=== PATIENT | male | born 1945 | race Caucasian/White ===

== ENCOUNTER 2020-04-04 07:46 | Day surgery (SDC) | payer MEDICARE, OTHER, SELFPAY ==
[2020-04-01 10:04] VITALS: BMI 36.6
--- NOTE | 2020-04-01 15:33 | HO.ANESPROP2 ---
Documented by User: Verónica Gonzalez 04/03/20 10:46 HPI - Anesthesia Eval Consult details Narrative: 74yo M for colonoscopy: screening Cardiac cleared [facility] Past Medical History Medical History Arthritis Back pain Cancer Cardiomyopathy CHF (congestive heart failure) Diabetes Elevated cholesterol History of blood transfusion HTN (hypertension) Hx of gout Hx of heartburn Sleep apnea Surgical History Surgical History H/O colonoscopy History of bronchoscopy Hx of cardiac cath Hx of cataract extraction Social History Social History Smoking Status: Former smoker Smoked in Last 30 Days: No Smoking Quit Date: age 23 Use of substances other than those prescribed or required for medical reasons: No Advance Directives Information Provided: No Recently lost weight without trying: No Meds Allergies Allergy/AdvReac Type Severity Reaction Status Date / Time sodium pentathol Allergy Unknown Uncoded 04/04/20 08:37 Home Medications Medication Instructions Recorded Confirmed Type allopurinol 1 tab PO DAILY 04/01/20 04/01/20 History aspirin [Aspirin Low Dose] 81 mg PO DAILY 04/01/20 04/01/20 History carvedilol 1 tab PO BID 04/01/20 04/01/20 History eplerenone 1 tab PO DAILY 04/01/20 04/01/20 History furosemide 1 tab PO BID 04/01/20 04/01/20 History glyburide 1.25 mg PO BID 04/01/20 04/01/20 History ibuprofen 1 tab PO TID PRN 04/01/20 04/01/20 History simvastatin 1 tab PO DAILY 04/01/20 04/01/20 History valsartan 1.5 tab PO DAILY 04/01/20 04/01/20 History Exam Exam Date and Time: April 01, 2020 1533 Height,Weight and Vital Signs: Height 6 ft 1 in Weight 126.099 kg Narrative Narrative: EKG (from cardiac visit) 11/2019: SB @ 56, 1st deg AV block, poor R wave progression, LAD, ? old [place] ECHO 11/2019: LVEF 35-45%, mod global hypokinesis of LV contractility, Grade 2 DD with impaired relax and elevated LA pressure, possible increased LA pressure. LA severe Dilated. RV sys function low normal, RA mild dilated. Mild AR, trace MR, trace TR, no pulm htn, no pericardial effusion Assessment and Plan Assessment Anesthesia Assessment: Chart Reviewed Documented by User: Payton Storey 04/04/20 08:54 PMFSH Past Medical History Medical History Arthritis Back pain Cancer Cardiomyopathy CHF (congestive heart failure) Diabetes Elevated cholesterol History of blood transfusion HTN (hypertension) Hx of gout Hx of heartburn Sleep apnea Surgical History Surgical History H/O colonoscopy History of bronchoscopy Hx of cardiac cath Hx of cataract extraction Social History Social History Smoking Status: Former smoker Smoked in Last 30 Days: No Smoking Quit Date: age 23 Use of substances other than those prescribed or required for medical reasons: No Advance Directives Information Provided: No Recently lost weight without trying: No Meds Allergies Allergy/AdvReac Type Severity Reaction Status Date / Time sodium pentathol Allergy Unknown Uncoded 04/04/20 08:37 Home Medications Medication Instructions Recorded Confirmed Type allopurinol 1 tab PO DAILY 04/01/20 04/01/20 History aspirin [Aspirin Low Dose] 81 mg PO DAILY 04/01/20 04/01/20 History carvedilol 1 tab PO BID 04/01/20 04/01/20 History eplerenone 1 tab PO DAILY 04/01/20 04/01/20 History furosemide 1 tab PO BID 04/01/20 04/01/20 History glyburide 1.25 mg PO BID 04/01/20 04/01/20 History ibuprofen 1 tab PO TID PRN 04/01/20 04/01/20 History simvastatin 1 tab PO DAILY 04/01/20 04/01/20 History valsartan 1.5 tab PO DAILY 04/01/20 04/01/20 History Exam Airway Mallampati Class: II TM Dist: >3cm Denture: Upper Assessment and Plan Assessment Anesthesia Assessment: Anesthesia Plan Discussed and Chart Reviewed Final Anesthetic Review NPO: Yes ASA Class: III Final Preanesthetic Review: No Changes in Pt Med Stat, Meds/Allgs Chart Reviewed, Consent Obtained/Reviewed and Anes Risks/Benef Reviewed Patient Risk: Intermediate Procedure Risk: Low Assessment/Block/Sedation in SS: Assess/Block/Sedation-SS Anesthetic Plan Anesthetic Plan: MAC: Disposition: Standard PACU
[2020-04-04 08:41] VITALS: BP 128/65; PULSE 60; RESP 16; TEMP 36.1; O2SAT 96
--- NOTE | 2020-04-04 08:54 | P.HPSUR_ITS ---
Pre-Procedural Eval Section B Chief Complaint: Screning, Intermediate Aspirin Use Details of Present Illness: screening Relevant Family History (Specify if Yes): No Relevant Social History: None Present Medications: see Short Stay Collaborative assessment Medical History: Significant History (see H&P no changes) History of Previous Operations: No relevant previous surgery Allergies: Allergies Allergy/AdvReac Type Severity Reaction Status Date / Time sodium pentathol Allergy Unknown Uncoded 04/04/20 08:37 Review of Systems Sugical H&P ROS: Negative: Constitution, Cardiovascular, Respiratory, Neurological, Psychiatric, Hem-Onc, Allergic/Immunologic, Gastrointestinal, Genitourinary, Musculoskeletal, Integumentary, Endocrine and Eyes/Ears/Nose/Throat Exam Surgical H&P Exam: Normal: HEENT, Normal: Heart, Normal: Lungs, Normal: Extremities, Normal: Abdomen, Normal: Skin and Normal: Neurological Plan Diagnosis/Plan: Unchanged Patient has been examined and remains a candidate for the planned procedure
[2020-04-04 08:57] LABS: Glucose, Whole Blood 176 mg/dL (60-115)
[2020-04-04 09:27] VITALS: BP 86/47; PULSE 65; RESP 16; TEMP 36.3; O2SAT 98
--- NOTE | 2020-04-04 09:29 | PM.OP ---
Brief Operative Note Date of procedure: 04/04/20 Pre-op diagnosis: screening Post-op diagnosis: other (colon polyp) Procedure: colonoscopy Surgeon: Romulo Rangel Anesthesia: MAC Estimated blood loss (mL): 1 Pathology: other (polyp 60 cm) Condition: stable Disposition: PACU
[2020-04-04 09:30] VITALS: BP 91/51; PULSE 64
--- NOTE | 2020-04-04 09:38 | OP_ITS ---
SURGEON: Romulo Rangel MD INDICATIONS: Colon cancer screening and prior history of adenomatous colon polyps. PREOPERATIVE DIAGNOSIS: POSTOPERATIVE DIAGNOSIS: PROCEDURE PERFORMED: Colonoscopy to the terminal ileum with biopsy. ESTIMATED BLOOD LOSS: COMPLICATIONS: ANESTHESIA: ASSISTANTS: SPECIMENS: MEDICATIONS: Monitored anesthesia care. DESCRIPTION OF PROCEDURE: History and physical performed. The risks and benefits of the procedure were explained to the patient. Informed consent was obtained. The patient was placed in the left lateral decubitus position. A digital rectal exam was performed and was found to be normal. The Olympus pediatric video colonoscope was introduced into the rectum and advanced to the cecum without difficulty. The cecum was identified by transillumination, palpation, and identification of ileocecal valve. Examination was performed and the scope was removed. He tolerated the procedure well and was returned to recovery area in stable condition. FINDINGS: The terminal ileum was examined briefly and appeared normal. The visualized colonic mucosa was within normal limits without evidence of masses or ulcers. There was scattered diverticulosis with moderate diverticulosis involving the sigmoid. A single polyp at 60 cm was identified and removed with biopsy forceps measuring 5 mm. No other polyps were identified. Retroflexed examination showed internal hemorrhoids that were moderate in size. The quality of the prep was fair with some liquid stool limiting the examination. IMPRESSION: Colon polyp. RECOMMENDATION: Follow up the biopsy results. MD FELIPE Patiño/GAYLE / [id number]
[2020-04-04 09:50] VITALS: BP 119/58; PULSE 63; RESP 16; TEMP 36.3; O2SAT 95
[2020-04-04 10:05] VITALS: BP 115/62; PULSE 78; RESP 16; TEMP 36.1; O2SAT 98
--- NOTE | 2020-04-04 10:16 | HO.POSTANES ---
Post Anesthesia Evaluation Post Anesthesia Evaluation Vital Signs: Vital Signs Temp Pulse Resp BP Pulse Ox 04/04/20 10:05 97 F 78 16 115/62 98 04/04/20 09:50 97.3 F 63 16 119/58 L 95 04/04/20 09:30 64 91/51 L 04/04/20 09:27 97.3 F 65 16 86/47 L 98 04/04/20 08:41 96.9 F 60 16 128/65 96 Anesthesia: Monitored Mental Status: Awake Pain Control: Satisfactory Nausea/Vomiting: None Hydration: Adequate Anesthesia-Related Issues: No Anes. Related Issues
== END 2020-04-04 10:18 | disposition home or self-care (01) ==
PROVIDERS: PCP Internal Medicine; Visit Provider Internal Medicine Gastroenterology
PROC: 0DJD8ZZ Inspection of Lower Intestinal Tract, Via Natural or Artificial Opening Endoscopic (ICD-10-PCS; CPT 45378; principal; 2020-04-04 09:00)
DX: Z12.11 Encounter for screening for malignant neoplasm of colon (principal); Z86.010 Personal history of colon polyps; D12.4 Benign neoplasm of descending colon; K57.30 Diverticulosis of large intestine without perforation or abscess without bleeding; K64.8 Other hemorrhoids; E11.9 Type 2 diabetes mellitus without complications; I50.9 Heart failure, unspecified; I11.0 Hypertensive heart disease with heart failure; E78.00 Pure hypercholesterolemia, unspecified; Z79.84 Long term (current) use of oral hypoglycemic drugs; Z79.82 Long term (current) use of aspirin; Z85.820 Personal history of malignant melanoma of skin; Z87.891 Personal history of nicotine dependence; Z79.899 Other long term (current) drug therapy
CPT/HCPCS: 45380; 82947; 88305

== ENCOUNTER 2025-01-17 13:58 | Outpatient (AMB) | payer MEDICARE, OTHER, SELFPAY ==
--- OUTSIDE RECORDS SUMMARY | 2025-01-17 14:09 | XMS_ITS | Clinical Summary ---
Author Organization [facility] Address [address] [place] [id number] Phone Care Team Providers Care Cargo And Container Inspector Name Role Phone Chance Schmitz DO Primary Care Provider Social History Tobacco Use Types Packs/Day Years Used Date Smoking Tobacco: Never Assessed Education Answer Date Recorded Are you interested in more education? Not on basilio e 09/26/2024 Are you concerned about learning? Not on file 09/26/2024 No 09/26/2024 No 09/26/2024 Digital Access Answer Date Recorded No 09/26/2024 No 09/26/2024 Reliable internet access at home? Not on file 09/26/2024 Device with a working camera? Not on file Sex and Gender Information Value Date Recorded Sex Assigned at Not on file Legal Sex Male 10:37 PM EDT Gender Identity Not on file Sexual Orientation Not on file Plan of Treatment Upcoming Encounters Date Type Department Care Team (Late st Contact Info) Description 05/31/2025 3:00 PM EST Office Visit [facility] [address] [place] [address] [place] [id number] Chance Schmitz DO [address] [facility] [place] [address] [email or web address] Health Maintenance Due Date Last Done Comments Adult Td,Tdap Booster 1946 LIPID PANEL 1946 DEPRESSION SCREENING 1958 SMOKING Hx and SMOKELESS TOB ACCO SCREENING 11/09/1959 HEPATITIS C SCREENING 1964 PNEUMOCOCCAL VACCINES (50+ y ears) (1 of 1 - PCV) 1996 ZOSTER VACCINES (1 of 2) 1996 RSV VACCINE (1 - 1-dose 75+ series) 2021 COVID-19 VACCINE (2023-2 5 season) 2024 HEPATITIS A VACCINES Aged Out No long er eligible based on patient's age to complete this topic HIB VACCINES Aged Out No longer eligi ble based on patient's age to complete this topic MENINGOCOCCAL VACCINES (ACWY) Aged Out No longer eligible based on patient's age to complete this topic MENINGOCOCCAL VACCINES (B) Aged Out N o longer eligible based on patient's age to complete this topic Medical Devices Not on file Care Teams Cargo And Container Inspector Relationship Specialty Start Date End Date Chance Schmitz DO [address] [place] [address], [address] [place] [address] [email or web address] PCP - General Internal Medicine 09/26/24 Additional Source Comments The information contained in this document represents components of the legal health record. It is not the complete legal health record.[facility]
--- NOTE | 2025-01-17 14:23 | MHC.PC.OV ---
Vital Signs 01/17/25 14:41 Height 5 ft 9.69 in Weight 247 lb BMI 35.8 BP 135/65 Respiration 14 Pulse 52 Pulse Source Pulse Oximeter Temp 98.2 F Temp Source Temporal Artery Scan Pulse Oximetry (%) 96 Oxygen Delivery Method Room Air Intake Visit Reasons: establish care Pst Specialist Required: No Accompanied by: Self / Same As Patient Allergies sodium pentathol Allergy (Uncoded 01/17/25 16:53) Unknown Medication List - Last Reconciled 01/17/25 by Luz Bower PA-C allopurinol 300 mg PO DAILY aspirin (Jaimie Low Dose Aspirin) 81 mg PO DAILY carvedilol 25 mg PO BID 90 days cholecalciferol (vitamin D3) 25 mcg PO DAILY empagliflozin (Jardiance) 25 mg PO QAM eplerenone 25 mg PO DAILY furosemide 40 mg PO BID 90 days glyburide 1.25 mg (1/2 x 2.5 mg) PO BID 90 days metformin 500 mg PO BID 90 days [id number] mcg (Centrum Silver Men) 1 tab PO DAILY rosuvastatin 40 mg PO DAILY valsartan 120 mg (1.5 x 80 mg) PO DAILY 90 days Tobacco use date assessed: 01/17/25 Fall risk assessment: No Falls in past year Last assessed Fall Risk: 01/17/25 Dental Screening Dental Screen Date: 01/17/25 Did you have a dental visit in the last 12 months?: Yes Did you have a dental problem in the last 6 months where you did not have access to dental care?: No Was dental information given to patient?: Patient has dentist HPI establish care HPI Details The patient is a 79-year-old male presenting with medication refills and management of chronic conditions. 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 He is currently on allopurinol to manage this condition. He has a history of hypertension and is on carvedilol for management. The patient also has cardiomyopathy and a history of congestive heart failure, for which he is under the care of a orthodontic technician assistant. The patient has diabetes mellitus, with a recent A1c of 7.0. He is on Jardiance and other medications to manage his blood glucose levels. He has hyperlipidemia and is on medication to manage his cholesterol levels. 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 The patient has spinal stenosis and underwent a cardiac catheterization in 2009 and cataract extraction in 2013. His last colonoscopy was at the age of 73. He has sleep apnea and uses a CPAP machine, with a need for renewal of supplies. The patient is also on a vitamin D supplement and furosemide. Social History - Family Status: Lives with , who is his healthcare proxy. [facility] Medical History (Updated 01/17/25 @ 17:03 by Luz Bower PA-C) Obesity (BMI 35.0-39.9 without comorbidity) Spinal stenosis Melanoma Hyperlipidemia LDL goal <100 Type 2 diabetes mellitus with hemoglobin A1c goal of less than 7.0% Gout Cancer Hx of gout Arthritis Back pain Diabetes History of blood transfusion Hx of heartburn Cardiomyopathy Elevated cholesterol CHF (congestive heart failure) HTN (hypertension) Sleep apnea Surgical History History of bronchoscopy Hx of cataract extraction Hx of cardiac cath H/O colonoscopy Family History Father Heart failure Mother Throat cancer Social History Housing: House Alcohol intake: current Alcohol intake frequency: holidays/special occasions only Patient Tobacco Use Status: Former Tobacco user service: No Current occupational status: retired Cognitive needs: No Hearing needs: No Vision needs: No Questionnaire PHQ-9 Over the last 2 weeks, how often have you been bothered by any of the following problems? 1. Little interest or pleasure in doing things: not at all 2. Feeling down, depressed, or hopeless: not at all 3. Trouble falling or staying asleep, or sleeping too much: not at all 4. Feeling tired or having little energy: not at all 5. Poor appetite or overeating: not at all 6. Feeling bad about yourself - or that you are a failure or have let yourself or your family down: not at all 7. Trouble concentrating on things, such as reading the newspaper or watching television: not at all 8. Moving or speaking so slowly that other people could have noticed. Or the opposite - being so fidgety or restless that you have been moving around a lot more than usual: not at all 9. Thoughts that you would be better off or of hurting yourself in some way: not at all Total score: 0 Depression Screening Interpretation: Negative Depression Screening Done: Yes 74209 - PHQ-9 Billing: Yes Source: Developed by Drs. Maxime Jones, Jemma Haney, Kenneth Gomez and colleagues, with an educational emmanuel from [employer]. Thrive Questionnaire Date Thrive assessed: 01/17/25 I am a: Patient What is your living situation today?: I have a steady place to live Within the past 12 months, did the food you bought not last and you didn't have the money to get more?: Never true Within the past 12 months, did you worry whether your food would run out before you got money to buy more?: Never true Do you have trouble paying for medicines?: No Do you have trouble getting transportation to medical appointments?: No Do you have trouble paying your heating and electricity bill?: No Do you have trouble taking care of your child, family member or friend?: No Do you have trouble with day-to-day activities such as bathing, preparing meals, shopping, managing finances, etc.?: No Are you currently unemployed and looking for a job?: No Are you interested in more education?: No Please select the resources that you would like help with: None THRIVE Score: 0 AUDIT C Alcohol Use Questionnaire (AUDIT-C) 1. How often do you have a drink containing alcohol?: Monthly or less 2. How many drinks containing alcohol do you have on a typical day when you are drinking?: 1 or 2 3. How often do you have six or more drinks on one occasion?: Never Total Score: 1 Score Reviewed/Action Taken: No GEE-7 AMB Questionnaire GEE-7 Date GEE - 7 assessed: 01/17/25 Feeling nervous, anxious, or on edge: 0 = Not at all Not being able to stop or control worryin = Not at all Worrying too much about different things: 0 = Not at all Trouble relaxin = Not at all Being so restless that it is hard to sit still: 0 = Not at all Becoming easily annoyed or irritable: 0 = Not at all Feeling afraid as if something awful might happen: 0 = Not at all Total GEE-7 score (0-4 normal; 5-9 mild; 10-14 moderate; 15-21 severe): 0 Source: Developed by Drs. Maxime Jones, Jemma Haney, Kenneth Gomez and colleagues, with an educational emmanuel from [employer]. GEE-7 Assessment Billing GEE-7 Assessment Tool: GEE-7 Assessment 64191 Review of Systems Const Details: - Cardiovascular: Denies chest pain, dizziness, or syncope. - Gastrointestinal: Denies black or bloody stools, abdominal pain. - Musculoskeletal: Denies leg swelling, reports occasional tripping in the garden. All systems reviewed & are unremarkable except as noted in HPI and below Physical exam (Primary Care) Vital Signs: Last Vital Signs Temp 98.2 F 01/17/25 14:41 Pulse 52 01/17/25 14:41 Resp 14 01/17/25 14:41 BP 135/65 01/17/25 14:41 Pulse Ox 96 01/17/25 14:41 Oxygen Delivery Method Room Air 01/17/25 14:41 Care Plan Goal for BP management: <140/90 at Goal BMI result Body Mass Index 35.8 BMI Assessment/Plan discussion: High BMI High, discussed plan: lifestyle, weight reduction, dietary, physical activity, alcohol moderation and other Tobacco/Smoking Status: Tobacco use Status Tobacco use date assessed 01/17/25 01/17/25 14:25 Patient Tobacco Use Status Former Tobacco user 01/17/25 14:49 PHQ-9: PHQ-9 Score PHQ-9: Total score 0 01/17/25 15:17 Depression Screening Interpretation: Negative Thrive Assessment: Date of Thrive Assessment Date Thrive assessed 01/17/25 01/17/25 14:25 Const Other: Appearance: Alert. Oriented X3. No acute distress. Head: Normal external exam. Normocephalic. Atraumatic. Eyes: Pupils are equal, round, and reactive to light. Extraocular movements intact. Conjunctiva and sclera normal. Eyelids normal. Throat: Pharynx normal. Uvula midline. Moist mucous membranes. Neck: Normal inspection. Neck supple. Full range of motion. Cardiovascular: Normal heart rate and rhythm. Heart sound normal. No murmurs noted. Pulses normal throughout. Respiratory: No respiratory distress. Painless inspiration. Breath sounds normal. No wheezes/rales/rhonchi noted. Chest nontender. No accessory muscle usage noted or decreased air movement noted. Back: Full range of motion noted. Skin: Skin warm and dry. Normal skin color. Normal skin turgor. No rashes/lesions/lacerations noted. Extremities: No lower extremity edema. Extremities exhibit normal range of motion. Neuro: Oriented X 3. No motor deficit. No sensory deficit. Reflexes normal. Results AMB Hemoglobin A1c AMB Hemoglobin A1c 7.0 % Last Edit by AILEEN Vaca on 01/17/25 15:18 Results Reviewed Results Reviewed: Laboratory Last Values Hgb A1c (Clinic) 7.0 % (4.0-6.0) H 01/17/25 15:09 Coding Level of Care Code New Pt Level 4 (37904) Complex EM visit Add On G2211 Diagnoses Gout M10.9 HTN (hypertension) I10 Cardiomyopathy I42.9 CHF (congestive heart failure) I50.9 Type 2 diabetes mellitus with hemoglobin A1c goal of less than 7.0% E11.9 Hyperlipidemia LDL goal <100 E78.5 Melanoma C43.9 Spinal stenosis M48.00 Sleep apnea G47.30 Obesity (BMI 35.0-39.9 without comorbidity) E66.9 Additional Codes PHQ-9 - 40139 - PHQ-9 Billing: Yes ([id number]) GEE-7 Assessment Billing - GEE-7 Assessment Tool: GEE-7 Assessment 36329 ([id number]) Time Spent (min) 50 Assessment & Plan Assessment & Plan (1) Gout: Code(s): M10.9 - Gout, unspecified Category: Medical Plan: The patient is currently on allopurinol to manage gout, which was induced by other medications. Continued monitoring and medication adherence are recommended. (2) HTN (hypertension): Code(s): I10 - Essential (primary) hypertension Category: Medical Plan: The patient is on carvedilol for hypertension management. Regular blood pressure monitoring and follow-up with the orthodontic technician assistant are advised. (3) Cardiomyopathy: Comment: [id number] Dr. Martin Code(s): I42.9 - Cardiomyopathy, unspecified Category: Medical Plan: The patient has cardiomyopathy and is under the care of a orthodontic technician assistant. Regular cardiac evaluations and adherence to prescribed medications are essential. (4) CHF (congestive heart failure): Code(s): I50.9 - Heart failure, unspecified Category: Medical Plan: The patient has a history of congestive heart failure and is managed with carvedilol and furosemide. Regular follow-up with the orthodontic technician assistant is necessary. (5) Type 2 diabetes mellitus with hemoglobin A1c goal of less than 7.0%: Code(s): E11.9 - Type 2 diabetes mellitus without complications Category: Medical Plan: The patient is on Jardiance and other medications for diabetes management. A recent A1c was 7.0, and regular monitoring is advised. (6) Hyperlipidemia LDL goal <100: Code(s): E78.5 - Hyperlipidemia, unspecified Category: Medical Plan: The patient is on medication for hyperlipidemia management. Regular lipid profile monitoring is recommended. 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 Regular dermatological evaluations are advised. (8) Spinal stenosis: Code(s): M48.00 - Spinal stenosis, site unspecified Category: Medical Plan: The patient has spinal stenosis. Monitoring for symptoms and regular follow-up are recommended. (9) Sleep apnea: Comment: uses CPAP Code(s): G47.30 - Sleep apnea, unspecified Category: Medical Plan: The patient uses a CPAP machine for sleep apnea. Renewal of CPAP supplies is necessary, and regular follow-up is advised. Will refer to sleep Medicine for renewal of CPAP supplies and any additional equipment patient will need for his obstructive sleep apnea. (10) Obesity (BMI 35.0-39.9 without comorbidity): Code(s): E66.9 - Obesity, unspecified Category: Medical Plan: Patient to improve weight with diet and exercise. Condition is chronic and stable will continue to monitor. Plan Plan Patient was informed and verbally consented to the use of an ambient scribe for clinic note documentation during this visit. 1. Gout The patient is currently on allopurinol to manage gout, which was induced by other medications. Continued monitoring and medication adherence are recommended. 2. Hypertension The patient is on carvedilol for hypertension management. Regular blood pressure monitoring and follow-up with the orthodontic technician assistant are advised. 3. Cardiomyopathy The patient has cardiomyopathy and is under the care of a orthodontic technician assistant. Regular cardiac evaluations and adherence to prescribed medications are essential. 4. Congestive Heart Failure The patient has a history of congestive heart failure and is managed with carvedilol and furosemide. Regular follow-up with the orthodontic technician assistant is necessary. 5. Diabetes Mellitus The patient is on Jardiance and other medications for diabetes management. A recent A1c was 7.0, and regular monitoring is advised. 6. Hyperlipidemia The patient is on medication for hyperlipidemia management. Regular lipid profile monitoring is recommended. 7. 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 Regular dermatological evaluations are advised. 8. Spinal Stenosis The patient has spinal stenosis. Monitoring for symptoms and regular follow-up are recommended. 9. Sleep Apnea The patient uses a CPAP machine for sleep apnea. Renewal of CPAP supplies is necessary, and regular follow-up is advised. During the visit, we discussed the management of the patient's chronic conditions, including medication refills and the need for regular monitoring of blood pressure, blood glucose, and lipid levels. We also addressed the renewal of CPAP supplies for sleep apnea management. The patient was advised to follow up with his orthodontic technician assistant and to have regular dermatological evaluations due to his history of melanoma. We discussed the importance of medication adherence and regular follow-up appointments to manage his conditions effectively. Orders: Orders AMB Hemoglobin A1c Today E11.9 - Type 2 diabetes mellitus without complications C Reactive Protein Today Z00.00 - Encounter for general adult medical examination without abnormal findings Complete Blood Count Auto Diff Today Z00.00 - Encounter for general adult medical examination without abnormal findings PSA,Total (Free>4and<10) Today Z00.00 - Encounter for general adult medical examination without abnormal findings TSH reflex Free T4 Today Z00.00 - Encounter for general adult medical examination without abnormal findings Comprehensive [place]. Panel Fast Today Z00.00 - Encounter for general adult medical examination without abnormal findings Lipid Panel Today Z00.00 - Encounter for general adult medical examination without abnormal findings Liver Panel Today Z00.00 - Encounter for general adult medical examination without abnormal findings Magnesium Today Z00.00 - Encounter for general adult medical examination without abnormal findings Vitamin B12 and Folate Today Z00.00 - Encounter for general adult medical examination without abnormal findings Vitamin D 25-OH Total Today Z00.00 - Encounter for general adult medical examination without abnormal findings Microalbumin, Random (w Creat) Today E11.9 - Type 2 diabetes mellitus without complications Referrals Sleep Medicine Referral G47.30 - Sleep apnea, unspecified Medications: New cholecalciferol (vitamin D3) 25 mcg PO DAILY 90 caps 3RF metformin 500 mg PO BID 180 tabs 3RF 90 days rosuvastatin 40 mg PO DAILY 90 tabs 3RF aspirin (Jaimie Low Dose Aspirin) 81 mg PO DAILY 90 tabs 3RF empagliflozin (Jardiance) 25 mg PO QAM 90 tabs 3RF [id number]-[id number] [id number] mcg (Centrum Silver Men) 1 tab PO DAILY 90 tabs 3RF Changed From eplerenone 1 tab PO DAILY To eplerenone 25 mg PO DAILY 90 tabs 3RF From valsartan 1.5 tabs PO DAILY To valsartan 120 mg (1.5 x 80 mg) PO DAILY 135 tabs 3RF 90 days From allopurinol 1 tab PO DAILY To allopurinol 300 mg PO DAILY 90 tabs 3RF From carvedilol 1 tab PO BID To carvedilol 25 mg PO BID 180 tabs 3RF 90 days From furosemide 1 tab PO BID To furosemide 40 mg PO BID 180 tabs 3RF 90 days From glyburide 1.25 mg PO BID To glyburide 1.25 mg (1/2 x 2.5 mg) PO BID 90 tabs 3RF 90 days Patient Instructions: - Continue taking all prescribed medications as directed. - Schedule and attend regular follow-up appointments with your orthodontic technician assistant and mold maker apprentice. - Monitor blood pressure and blood glucose levels regularly. - Ensure CPAP supplies are renewed and functioning properly. - Complete fasting blood work before the next appointment.
[2025-01-17 14:41] VITALS: BP 135/65; PULSE 52; RESP 14; TEMP 36.8; O2SAT 96; BMI 35.8
== END 2025-01-17 15:24 | disposition home or self-care (01) ==
LOC: HO.HMCSH 13:59
PROVIDERS: PCP Internal Medicine; Visit Provider Physician Assistant Medical
DX: M10.9 Gout, unspecified (principal); I10 Essential (primary) hypertension; I42.9 Cardiomyopathy, unspecified; I50.9 Heart failure, unspecified; E11.9 Type 2 diabetes mellitus without complications; E78.5 Hyperlipidemia, unspecified; C43.9 Malignant melanoma of skin, unspecified; M48.00 Spinal stenosis, site unspecified; G47.30 Sleep apnea, unspecified; E66.9 Obesity, unspecified

== ENCOUNTER → 2025-01-17 13:58 | Outpatient (BNVA) | payer MEDICARE, OTHER, SELFPAY | PROVIDERS: PCP Internal Medicine; Visit Provider Physician Assistant Medical | DX: M10.9 Gout, unspecified (principal); I42.9 Cardiomyopathy, unspecified; I11.0 Hypertensive heart disease with heart failure; I50.9 Heart failure, unspecified; E11.9 Type 2 diabetes mellitus without complications; E78.5 Hyperlipidemia, unspecified; C43.9 Malignant melanoma of skin, unspecified; M48.00 Spinal stenosis, site unspecified; G47.30 Sleep apnea, unspecified; E66.9 Obesity, unspecified; Z68.35 Body mass index [BMI] 35.0-35.9, adult; Z71.3 Dietary counseling and surveillance | CPT/HCPCS: 83036; 96127; 99202 ==

== ENCOUNTER 2025-04-03 10:27 | Outpatient (REF) | payer MEDICARE, OTHER, SELFPAY ==
[2025-04-03 10:47] LABS: MANUAL DIFF FLAG NO
[2025-04-03 11:13] LABS: Hematocrit 50.2 % (42.0-52.0); Hemoglobin 16.9 g/dl (14.0-18.0); Imm Gran Abs Auto 0.01 X10*3/uL (0.00-0.03); Imm Gran Pct Auto 0.2 % (0.0-0.4); Lymphocytes Absolute Auto 1.0 X10*3/uL (1.2-4.9); Mean Corpuscular HGB Conc 33.7 g/dl (31.0-36.0); Mean Corpuscular Hemoglobin 31.4 pg (27.0-33.0); Mean Corpuscular Volume 93.1 fL (80.0-98.0); NRBC Abs Auto 0.000 X10*3/uL (0.0-0.012); NRBC Pct Auto 0.0 /100WBC (0.0-0.2); Platelet Count 170 X10*3/uL (160-400); Red Blood Count 5.39 X10*6/uL (4.60-5.80); White Blood Count 5.5 X10*3/uL (4.8-10.8)
[2025-04-03 11:44] LABS: Alanine Aminotransferase 80 U/L (0-40); Albumin Level 4.3 g/dL (3.5-5.0); Alkaline Phosphatase 69 U/L (39-117); Anion Gap 10 (12-20); Aspartate Amino Transferase 42 U/L (5-37); Blood Urea Nitrogen 19 mg/dL (9-16); Calcium 9.3 mg/dL (8.4-10.2); Carbon Dioxide 29 mmol/L (22-29); Chloride 109 mmol/L (96-108); Cholesterol 131 mg/dL (<200); Estimated Glomerular Filt Rate > 60; HDL Cholesterol 43 mg/dL (>40); Magnesium 2.2 mg/dL (1.6-2.6); Potassium 3.8 mmol/L (3.3-5.1); Sodium 144 mmol/L (135-145); Total Protein 6.7 g/dL (6.5-8.0); Triglycerides 63 mg/dL (<150)
[2025-04-03 11:54] LABS: PSA,Total (Free>4and<10) 1.93 ng/mL (0.00-4.00)
[2025-04-03 12:39] LABS: Folate 14.3 ng/mL (> or = 4.0); Vitamin B12 417 pg/mL (200-900)
[2025-04-03 12:54] LABS: Microalbum/Creatinine Ratio Ur 189.6 ug/mg cr (<30)
== END 2025-04-03 10:28 | disposition home or self-care (01) ==
LOC: HO.LAB 10:27
PROVIDERS: PCP Physician Assistant Medical; Visit Provider Physician Assistant Medical
DX: Z00.00 Encounter for general adult medical examination without abnormal findings (principal); Z12.5 Encounter for screening for malignant neoplasm of prostate; E11.9 Type 2 diabetes mellitus without complications
CPT/HCPCS: 36415; 80053; 80061; 80076; 82043; 82248; 82306; 82570; 82607; 82746; 83735; 84153; 84443; 85025; 86140

== ENCOUNTER 2025-04-16 10:06 | Outpatient (AMB) | payer MEDICARE, OTHER, SELFPAY ==
--- NOTE | 2025-04-16 10:02 | A.OFFPC_ITS ---
Vital Signs 04/16/25 11:30 Height 5 ft 9.69 in Weight 250 lb BMI 36.2 BP 131/62 Blood Pressure Location Rt brachial Position Sitting Respiration 14 Pulse 48 L Pulse Source Monitor Temp 97.6 F Temp Source Temporal Artery Scan Pulse Oximetry (%) 96 Intake Visit Reasons: 3 months Real Estate Investment Analyst Required: No Accompanied by: Self / Same As Patient Allergies sodium pentathol Allergy (Uncoded 04/16/25 11:30) Unknown Medication List - Last Reconciled 04/16/25 by Luz Bower PA-C allopurinol 300 mg PO DAILY aspirin (Jaimie Low Dose Aspirin) 81 mg PO DAILY blood sugar diagnostic Check glucose 3 times a day with meals carvedilol 25 mg PO BID 90 days cholecalciferol (vitamin D3) 25 mcg PO DAILY empagliflozin (Jardiance) 25 mg PO QAM eplerenone 25 mg PO DAILY furosemide 40 mg PO BID 90 days glyburide 2.5 mg PO DAILY 90 days glyburide 2.5 mg PO BID 90 days lancets (Easy Touch Safety Lancets) Check glucose 3 times a day with meals lancets Check glucose 3 times a day with meals metformin 500 mg PO BID 90 days miscellaneous medical supply 1 ea miscellaneous BEDTIME [id number] mcg (Centrum Silver Men) 1 tab PO DAILY rosuvastatin 40 mg PO DAILY valsartan 120 mg (1.5 x 80 mg) PO DAILY 90 days Tobacco use date assessed: 01/17/25 Dental Screening Dental Screen Date: 01/17/25 HPI 3 months HPI Details The patient is a 79-year-old male presenting for management of his chronic conditions. Regarding his diabetes, the patient's most recent A1c was 7.0 on January 17, 2025. His current medication regimen includes Jardiance 25 mg daily, glyburide 2.5 mg in the morning, and two 2.5 mg tablets of glyburide at bedtime, in addition to metformin. The patient has been on this regimen for a long time and does not wish to make any changes. For his obstructive sleep apnea, the patient's last sleep study was conducted 10 years ago or more. He expressed concern over a bill for over $100 for CPAP supplies, which noted prescriber self. He was instructed to call his insurance company to as why he is getting a bill for his CPAP supplies when he has never had a bill in the past. Patient was referred to sleep Medicine and pulmonology which she was hesitant and we explained to him that pulmonology and the sleep medicine referral department usually hand those the CPAP and proper titration and follow-ups for this. Patient understands agrees with this plan. Patient requesting flu vaccine today. [facility] Medical History (Updated 04/16/25 @ 11:34 by Luz Bower PA-C) Medication refill Obesity (BMI 35.0-39.9 without comorbidity) Spinal stenosis Melanoma Hyperlipidemia LDL goal <100 Type 2 diabetes mellitus with hemoglobin A1c goal of less than 7.0% Gout Cancer Hx of gout Arthritis Back pain Diabetes History of blood transfusion Hx of heartburn Cardiomyopathy Elevated cholesterol CHF (congestive heart failure) HTN (hypertension) Sleep apnea Surgical History History of bronchoscopy Hx of cataract extraction Hx of cardiac cath H/O colonoscopy Family History Father Heart failure Mother Throat cancer Social History Housing: House Alcohol intake: current Alcohol intake frequency: holidays/special occasions only Patient Tobacco Use Status: Former Tobacco user service: No Current occupational status: retired Cognitive needs: No Hearing needs: No Vision needs: No Questionnaire Thrive Questionnaire Date Thrive assessed: 01/17/25 GEE-7 AMB Questionnaire GEE-7 Date GEE - 7 assessed: 01/17/25 Source: Developed by Drs. Maxime Jones, Jemma Haney, Kenneth Gomez and colleagues, with an educational emmanuel from [employer]. Review of Systems Const Details: - General: Patient denies any complaints. All systems reviewed & are unremarkable except as noted in HPI and below Physical exam (Primary Care) Care Plan Goal for BP management: <140/90 at Goal BMI Assessment/Plan discussion: High BMI High, discussed plan: lifestyle, weight reduction, dietary, physical activity, alcohol moderation and other Tobacco/Smoking Status: Tobacco use Status Tobacco use date assessed 01/17/25 04/16/25 10:19 Patient Tobacco Use Status Former Tobacco user 04/16/25 10:19 Thrive Assessment: Date of Thrive Assessment Date Thrive assessed 01/17/25 04/16/25 10:19 Const Other: Appearance: Alert. Oriented X3. No acute distress. Head: Normal external exam. Normocephalic. Atraumatic. Eyes: Pupils are equal, round, and reactive to light. Extraocular movements intact. Conjunctiva and sclera normal. Eyelids normal. Throat: Pharynx normal. Uvula midline. Moist mucous membranes. Neck: Normal inspection. Neck supple. Full range of motion. Cardiovascular: Normal heart rate and rhythm. Respiratory: No respiratory distress. Painless inspiration. Back: Full range of motion noted. Skin: Skin warm and dry. Normal skin color. Extremities: Extremities exhibit normal range of motion. Office Procedures Flu Questionnaire Does the patient have a severe egg allergy?: No Does the patient have severe life threatening allergies?: No Does the patient have a fever or illness today?: No Has the patient ever had Guillain-Dunnellon Syndrome?: No Has the patient ever had any past reaction to a flu shot?: No Results AMB Hemoglobin A1c AMB Hemoglobin A1c 7.0 % Last Edit by AILEEN Vaca on 04/16/25 10:50 Immunizations Fluarix [id number] (PF) 45 mcg (15 mcg x 3)/0.5 mL IM syringe Performing Provider: Luz Bower PA-C Performing [facility] [place] Administered by: AILEEN Vaca on 04/16/25 10:44 Dose Route Admin Location Dispensed Lot Number Expiration Date [facility] Front Desk Monitor 0.5 mL IM Left Deltoid 0.5 mL [id number] 12/10/25 [id number] [employer] VIS Given Date VIS Provided VIS Publication Date 04/16/25 Single Vaccine 24 Eligibility Eligibility Date Funding Source Not [facility] Eligible 04/16/25 Private Results Reviewed Results Reviewed: Laboratory Last Values Hgb A1c (Clinic) 7.0 % (4.0-6.0) H 04/16/25 10:43 - Labs: A1c was 7.0 on 01/17/2025. - Diagnostics: Last sleep study assessment was 10 or more years ago. Coding Level of Care Code Est Pt Level 4 (07976) Complex EM visit Add On G2211 Diagnoses Type 2 diabetes mellitus with hemoglobin A1c goal of less than 7.0% E11.9 Sleep apnea G47.30 Medication refill Z76.0 Assessment & Plan Assessment & Plan (1) Type 2 diabetes mellitus with hemoglobin A1c goal of less than 7.0%: Code(s): E11.9 - Type 2 diabetes mellitus without complications Category: Medical Plan: The patient's A1c of 7.0 indicates his diabetes is adequately controlled with the current medication regimen. As he is stable and wishes to continue his current therapy, the existing medication regimen of Jardiance 25 mg daily, glyburide 2.5 mg in the morning, two 2.5 mg tablets of glyburide at bedtime, and metformin will be continued. Refills for his medications will be provided. He will return in 3 months for a repeat A1c check. (2) Sleep apnea: Comment: uses CPAP Code(s): G47.30 - Sleep apnea, unspecified Category: Medical Plan: The patient has a history of obstructive sleep apnea, with his last sleep study being over a decade ago. He was counseled that management of JUSTINE and CPAP therapy is typically handled by pulmonology. Despite initial hesitation, he agreed to a referral to pulmonology for follow-up on his CPAP management and to consider a new sleep study. (3) Medication refill: Code(s): Z76.0 - Encounter for issue of repeat prescription Category: Medical Plan: The patient requires medication refills. Refills for allopurinol, carvedilol, Jardiance, valsartan, rosuvastatin, glyburide, furosemide, and metformin will be sent to his pharmacy. Plan Plan Patient was informed and verbally consented to the use of an ambient scribe for clinic note documentation during this visit. 1. Type 2 Diabetes Mellitus The patient's A1c of 7.0 indicates his diabetes is adequately controlled with the current medication regimen. As he is stable and wishes to continue his current therapy, the existing medication regimen of Jardiance 25 mg daily, glyburide 2.5 mg in the morning, two 2.5 mg tablets of glyburide at bedtime, and metformin will be continued. Refills for his medications will be provided. He will return in 3 months for a repeat A1c check. 2. Obstructive Sleep Apnea The patient has a history of obstructive sleep apnea, with his last sleep study being over a decade ago. He was counseled that management of JUSTINE and CPAP therapy is typically handled by pulmonology. Despite initial hesitation, he agreed to a referral to pulmonology for follow-up on his CPAP management and to consider a new sleep study. 3. Medication Refills The patient requires medication refills. Refills for allopurinol, carvedilol, Jardiance, valsartan, rosuvastatin, glyburide, furosemide, and metformin will be sent to his pharmacy. I reviewed the patient's recent A1c of 7.0. He expressed that he does not want to make any changes to his current medication regimen, which includes Jardiance, glyburide, and metformin, as it has been working for him. I agreed to continue his current treatment plan and scheduled a follow-up in three months for a repeat A1c. We discussed his concerns about a bill for his CPAP supplies and his history of obstructive sleep apnea, noting his last sleep study was over 10 years ago. I explained that our clinic's standard procedure is to refer patients to pulmonology for CPAP management. Though initially hesitant, the patient understood and agreed to a pulmonology consultation. I will provide refills for his various medications as requested. Orders: Orders RT PSG in-lab sleep study Today G47.30 - Sleep apnea, unspecified AMB Hemoglobin A1c Today E11.9 - Type 2 diabetes mellitus without complications Influenza [id number] Immunization Today Z23 - Encounter for immunization RT PSG in-lab sleep titration Today G47.30 - Sleep apnea, unspecified Referrals Pulmonology Referral G47.30 - Sleep apnea, unspecified Medications: Refilled allopurinol 300 mg PO DAILY 90 tabs 3RF carvedilol 25 mg PO BID 180 tabs 3RF 90 days empagliflozin (Jardiance) 25 mg PO QAM 90 tabs 3RF valsartan 120 mg (1.5 x 80 mg) PO DAILY 135 tabs 3RF 90 days rosuvastatin 40 mg PO DAILY 90 tabs 3RF metformin 500 mg PO BID 180 tabs 3RF 90 days glyburide 2.5 mg PO DAILY 90 tabs 3RF 90 days glyburide 2.5 mg PO BID 180 tabs 3RF 90 days furosemide 40 mg PO BID 180 tabs 3RF 90 days eplerenone 25 mg PO DAILY 90 tabs 3RF Patient Instructions: - Continue to take your current diabetes medications as prescribed. - Refills for allopurinol, carvedilol, Jardiance, valsartan, rosuvastatin, glyburide, furosemide, and metformin will be sent to your pharmacy. - Please follow up with the lung specialist (wireless sales representative) as recommended for management of your CPAP machine. - Return to the clinic in 3 months for a blood test to recheck your diabetes control (A1c).
[2025-04-16 11:30] VITALS: BP 131/62; PULSE 48; RESP 14; TEMP 36.4; O2SAT 96; BMI 36.2
--- OUTSIDE RECORDS SUMMARY | 2025-04-16 11:46 | XMS_ITS | Clinical Summary ---
Author Organization [facility] Address [address] [place] [address] Phone Care Team Providers Care Advertising Agent Name Role Phone Chance Schmitz DO Primary [...] EST Office Visit [facility] [address] [place] [address] [place] [address] Chance Schmitz DO [address] [facility], [address]nd [place] [address] [email or web address] Health Maintenance Due Date Last Done Comments Adult Td,Tdap Booster 1946 LIPID PANEL 1946 DEPRESSION SCREENING 1958 SMOKING Hx and SMOKELESS TOB ACCO SCREENING 11/09/1959 HEPATITIS C SCREENING 1964 PNEUMOCOCCAL VACCINES (50+ y ears) (1 of 1 - PCV) 1996 ZOSTER VACCINES (1 of 2) 1996 RSV VACCINE (1 - 1-dose 75+ series) 2021 INFLUENZA VACCINE (#1) 2025 COVID-19 VACCINE (1 - 2024-2 6 season) 2025 HEPATITIS A VACCINES Aged Out No long [...] Medical Devices Not on file Care Teams Advertising Agent Relationship Specialty Start Date End Date Chance Schmitz DO [address] [place] [address], [address] [place] [address] [email or web address] PCP - General Internal Medicine 09/26/24 Additional Source Comments The information contained in this document represents components of the legal health record. It is not the complete legal health record.[facility]
--- OUTSIDE RECORDS SUMMARY | 2025-04-16 11:46 | XMS_ITS | Patient Health Record ---
Author Organization [facility] Address [address] [place] [id number] Care Team Providers Care Grades 1 Thru 6 Visiting Teacher Name Role Phone Alissa (RETIRED) Gagan BESS Primary Care Provider Unavailable Romulo Rangel Jr Unavailable Romulo Rangel Unavailable Unavailable Reason For Referral No Information Medications Medication SIG (Take, Route, Fr equency, Duration) Notes Start Date End Date Status Furosemide 40 MG 1 tablet Orally Once a day Active Allopurinol 300mg Ac tive Carvedilol 25 MG 1 tablet Orally Twic e a day; Duration: 30 day(s) Active Valsartan 80 MG 1 tablet Orally Once a day; Duration: 30 day(s) Active Aspir-81 81mg one a day Active Simvastatin 40 MG 1 tablet in the even ing Orally Once a day; Duration: 30 day(s) Active glyBURIDE 2.5 MG 1 tablet with breakf ast or the first main meal of the day Orally in am 5 mg in pm Active Immunizations Vaccine Route Administration Date Status Comme nts Influenza Unknown 03/13/2019 Administered Problems Problem Type SNOMED Code ICD Code Onset Dates Problem Status W/U Status Risk Notes Problem Colon cancer screening (938800828) Colon cancer screening (Z12.11) Active confirmed Problem Long-term current use of antiplatelet drug ([id number]) buttermaker (current) use of aspirin (Z79.82) Active confirmed Plan Of Treatment Future Test Test Name Order Date COLONOSCOPY 08/30/2013 Insurance Providers Payer Name Payer Address Payer Phone Subscriber Number Group Number Insured Name Patient Relationship to Insured Coverage Start Date Coverage End Date MEDICARE OF [employer] [address] [place] [address] [id number] [place] Self - patient is the insured [facility] [address] [place] [address] [id number] [place] Self - patient is the insured Medical (General) History Medical History History ICD Code colonoscopy 02/24, tubular adenoma, follo wup due 2019 Diabetes mellitus type 2 Hypertension Elevated cholesterol melanoma congestive heart failure, re cent ejection fraction 55%, nonischemic cardiomyopathy sleep apnea diverticulosis pneumonia/bronchoscopy, 2017 Surgical History Surgery Date(Month/Year) cardiac cath melanoma excision X3
== END 2025-04-16 10:48 | disposition home or self-care (01) ==
LOC: HO.HMCSH 10:06
PROVIDERS: PCP Physician Assistant Medical; Visit Provider Physician Assistant Medical
DX: E11.9 Type 2 diabetes mellitus without complications (principal); G47.30 Sleep apnea, unspecified; Z76.0 Encounter for issue of repeat prescription; Z23 Encounter for immunization

== ENCOUNTER → 2025-04-16 10:06 | Outpatient (BNVA) | payer MEDICARE, OTHER, SELFPAY | PROVIDERS: PCP Physician Assistant Medical; Visit Provider Physician Assistant Medical | DX: E11.9 Type 2 diabetes mellitus without complications (principal); G47.30 Sleep apnea, unspecified; Z99.89 Dependence on other enabling machines and devices; Z76.0 Encounter for issue of repeat prescription; Z23 Encounter for immunization | CPT/HCPCS: 83036; 90471; 90656; 99212 ==

== ENCOUNTER → 2025-05-20 19:30 | Outpatient (REF) | payer MEDICARE, OTHER, SELFPAY ==
--- OUTSIDE RECORDS SUMMARY | 2025-05-21 02:28 | XMS_ITS | Clinical Summary ---
Author Organization [facility] Address [address] [facility] [address] [place] [id number] Phone Care Team Providers Care Sports Coordinator Name Role Phone Chance Schmitz DO Primary [...] EST Office Visit [facility] [address] [place] [address] [place] [address] Chance Schmitz DO [address] [facility], [address] [place] [address] [email or web address] Health Maintenance Due [...] this topic Medical Devices Not on file Insurance MEDICARE PART A & B MEDICARE PART A & B MEDICARE PART A & B MEDICARE PART A & B MEDICARE PART A & B MEDICARE PART A & B Care Teams Sports Coordinator Relationship Specialty Start Date End Date Chance Schmitz DO [address] [place] [address], [address] [place] [address] [email or web address] PCP - General Internal Medicine 09/26/24 Additional Source Comments The information contained in this document represents components of the legal health record. It is not the complete legal health record.[facility]
== END ==
LOC: HO.SL 19:30
PROVIDERS: Visit Provider Physician Assistant Medical
DX: G47.33 Obstructive sleep apnea (adult) (pediatric) (principal); G47.36 Sleep related hypoventilation in conditions classified elsewhere
CPT/HCPCS: 95810

== ENCOUNTER → 2025-05-20 22:11 | Outpatient (BNV) | payer MEDICARE, OTHER, SELFPAY | PROVIDERS: Visit Provider Internal Medicine | DX: G47.33 Obstructive sleep apnea (adult) (pediatric) (principal) | CPT/HCPCS: 95810 ==